=== PATIENT | male | born 1970 | race Caucasian/White ===

== ENCOUNTER 2024-06-29 09:45 | Outpatient (RCR) | payer OTHER, SELFPAY | END 2024-09-19 09:25 | disposition home or self-care (01) | LOC: ANHDMC 09:45 | PROVIDERS: PCP Internal Medicine; Visit Provider Internal Medicine | DX: E11.9 Type 2 diabetes mellitus without complications (principal); Z71.3 Dietary counseling and surveillance | CPT/HCPCS: 97802 ==